=== PATIENT | male | born 1995 | race African-American/Black ===

== ENCOUNTER 2016-08-27 11:07 | Emergency (ER) | payer SELFPAY ==
[2016-08-27 11:11] VITALS: BP 134/83; PULSE 74; RESP 18; TEMP 97.5; O2SAT 97
--- NOTE | 2016-08-27 11:53 | EDPHY ---
H & P Time Seen by Provider: 08/27/16 11:41 HPI/ROS: CHIEF COMPLAINT: Sore throat since this morning HISTORY OF PRESENT ILLNESS: 20-year-old immunocompetent male with no history of mental health conditions, complaining of sore throat, uvular inflammation since last evening, bilateral submandibular adenopathy which is tender.. No chest pain. No fever or chills. No rash. No chest pain. No flank pain. No abdominal pain. REVIEW OF SYSTEMS: A ten point review of systems was performed and is negative with the exception of the items mentioned in the HPI PAST MEDICAL & SURGICAL HISTORY: No pertinent medical or surgical history SOCIAL HISTORY:nonsmoker PHYSICAL EXAM (Prior to examination, patient consented to physical exam, hands were washed and my usual and customary physical exam procedures followed) 1) GENERAL: Well-developed, well-nourished, alert and oriented. Appears to be in no acute distress. 2) HEAD: Normocephalic, atraumatic 3) HEENT: Pupils equal, round, reactive to light bilaterally. Sclera anicteric. Oropharynx: Bilaterally enlarged, symmetrical tonsils with white exudate with enlargement of the uvula. No hot potato voice. No trismus no drooling. No evidence of peritonsillar abscess. Ears bilaterally with normal tympanic membranes. 4) NECK: Full range of motion, no meningeal signs. 5) LUNGS: Clear auscultation bilaterally, no wheezes, no rhonchi, no retractions. 6) HEART: Regular rate and rhythm, no murmur, no heave, no gallop. 7) ABDOMEN: No guarding, no rebound, no focal tenderness,, 8) MUSCULOSKELETAL: No peripheral edema or discoloration. 9) BACK: no visual or palpable abnormality. 10) SKIN: No rash, no petechiae. DIFFERENTIAL DIAGNOSIS: in no particular include but limited to strep pharyngitis, uvulitis, peritonsillar abscess Smoking Status: Never smoked Constitutional: Initial Vital Signs Temperature (C) 36.4 C 08/27/16 11:09 Heart Rate 74 08/27/16 11:09 Respiratory Rate 18 08/27/16 11:09 Blood Pressure 134/83 H 08/27/16 11:09 O2 Sat (%) 97 08/27/16 11:09 O2 Delivery Mode Room Air Allergies/Adverse Reactions: No Known Allergies Allergy (Unverified 08/27/16 11:09) Home Medications: Medication Instructions Recorded Penicillin V Potassium [Pen Vk] 500 mg PO Q6 10 Days 08/27/16 methylPREDNISolone [Medrol Dose 4 mg PO DAILY #1 ea 08/27/16 Gilbert] MDM/Departure - MDM ED Course/Re-evaluation: Doubt peritonsillar abscess. inquired about prior history of adverse reaction to steroids or mental health conditions and he denies these. Patient will be started on Medrol Dosepak, Pen-VK, given usual and customary ENT precautions and recommend follow up with ENT tomorrow (Sunday). He feels comfortable being discharged. - Depart Disposition: Home, Routine, Self-Care Clinical Impression: Acute streptococcal pharyngitis Condition: Good Instructions: Pharyngitis (ED), Strep Throat (ED) Additional Instructions: Return to the ER immediately if you cannot swallow, have drooling, fevers, neck stiffness, cannot open your jaw, or any other symptoms that concern you. Prescriptions: methylPREDNISolone [Medrol Dose Gilbert] 4 mg PO DAILY #1 ea Penicillin V Potassium [Pen Vk] 500 mg PO Q6 10 Days Referrals: Rolanda Vasquez MD [Medical Doctor] - 08/28/16 (Dr. Rolanda Vasquez is an ear nose and throat doctor)
== END 2016-08-27 12:09 | disposition home or self-care (01) ==
DX: J02.0 Streptococcal pharyngitis (principal)